=== PATIENT | male | born 1940 | race Caucasian/White ===

== ENCOUNTER → 2018-06-09 06:56 | Outpatient (CLI) | payer MEDICARE, OTHER, SELFPAY ==
[2018-06-09 08:32] LABS: Hemoglobin A1C% w Est Avg Glu 6.9 % (4.0-6.0)
[2018-06-09 08:41] LABS: Alanine Aminotransferase 30 IU/L (21-72); Albumin 4.2 g/dL (3.5-5.0); Albumin Globulin Ratio 1.9 (1.0-2.8); Alkaline Phosphatase 63 U/L (38-126); Aspartate Aminotransferase 19 IU/L (17-59); Bilirubin Total 0.7 mg/dL (0.2-1.3); Blood Urea Nitrogen 26 mg/dL (9-20); Calcium 9.4 mg/dL (8.4-10.2); Carbon Dioxide 32 mmol/L (22-32); Chloride 102 mmol/L (98-107); Estimated Glomerular Filt Rate 53.7 mL/min (>60); Globulin 2.2 g/dL (1.7-4.1); Glucose 152 mg/dL (80-110); HEMOLYSIS < 15 (0-50); Potassium 5.1 mmol/L (3.4-5.1); Sodium 143 mmol/L (137-145); Total Protein 6.4 g/dL (6.3-8.2)
== END ==
PROVIDERS: PCP Internal Medicine; Visit Provider Internal Medicine
DX: I10 Essential (primary) hypertension (principal); E78.2 Mixed hyperlipidemia; E11.9 Type 2 diabetes mellitus without complications
CPT/HCPCS: 36415; 80053; 83036

== ENCOUNTER → 2018-09-08 07:18 | Outpatient (CLI) | payer MEDICARE, OTHER, SELFPAY ==
[2018-09-08 08:17] LABS: Hemoglobin A1C% w Est Avg Glu 7.3 % (4.0-6.0)
[2018-09-08 08:48] LABS: BUN Creatinine Ratio 21.5 (6-22); Blood Urea Nitrogen 28 mg/dL (9-20); Calcium 9.4 mg/dL (8.4-10.2); Carbon Dioxide 30 mmol/L (22-32); Chloride 103 mmol/L (98-107); Estimated Glomerular Filt Rate 53.5 mL/min (>60); Glucose 182 mg/dL (80-110); HEMOLYSIS < 15 (0-50); Sodium 146 mmol/L (137-145)
== END ==
PROVIDERS: Family Provider Ophthalmology; PCP Internal Medicine; Visit Provider Internal Medicine
DX: E11.65 Type 2 diabetes mellitus with hyperglycemia (principal)
CPT/HCPCS: 36415; 80048; 83036

== ENCOUNTER → 2018-12-08 07:13 | Outpatient (CLI) | payer OTHER, SELFPAY ==
[2018-12-08 08:44] LABS: Hemoglobin A1C% w Est Avg Glu 7.3 % (4.0-6.0)
[2018-12-08 08:48] LABS: BUN Creatinine Ratio 16.9 (6-22); Blood Urea Nitrogen 22 mg/dL (9-20); Calcium 9.6 mg/dL (8.4-10.2); Carbon Dioxide 30 mmol/L (22-32); Chloride 102 mmol/L (98-107); Estimated Glomerular Filt Rate 53.5 mL/min (>60); Glucose 137 mg/dL (80-110); HEMOLYSIS 17 (0-50); Potassium 4.2 mmol/L (3.4-5.1); Sodium 142 mmol/L (137-145)
== END ==
PROVIDERS: Family Provider Ophthalmology; PCP Internal Medicine; Visit Provider Internal Medicine
DX: E11.9 Type 2 diabetes mellitus without complications (principal); I10 Essential (primary) hypertension; N18.3 Chronic kidney disease, stage 3 (moderate)
CPT/HCPCS: 36415; 80048; 83036

== ENCOUNTER → 2019-06-21 07:03 | Outpatient (CLI) | payer OTHER, SELFPAY ==
[2019-06-21 08:56] LABS: Hemoglobin A1C% w Est Avg Glu 6.6 % (4.0-6.0)
[2019-06-21 09:07] LABS: Alanine Aminotransferase 12 IU/L (21-72); Albumin 4.2 g/dL (3.5-5.0); Albumin Globulin Ratio 1.7 (1.0-2.8); Alkaline Phosphatase 59 U/L (38-126); Aspartate Aminotransferase 19 IU/L (17-59); BUN Creatinine Ratio 19.2 (6-22); Bilirubin Total 0.4 mg/dL (0.2-1.3); Blood Urea Nitrogen 23 mg/dL (9-20); Calcium 9.1 mg/dL (8.4-10.2); Carbon Dioxide 28 mmol/L (22-32); Chloride 105 mmol/L (98-107); Estimated Glomerular Filt Rate 58.7 mL/min (>60); Globulin 2.5 g/dL (1.7-4.1); Glucose 111 mg/dL (80-110); HEMOLYSIS 19 (0-50); Potassium 4.1 mmol/L (3.4-5.1); Sodium 141 mmol/L (137-145); Total Protein 6.7 g/dL (6.3-8.2)
== END ==
PROVIDERS: Family Provider Ophthalmology; PCP Internal Medicine; Visit Provider Internal Medicine
DX: E11.9 Type 2 diabetes mellitus without complications (principal); I12.9 Hypertensive chronic kidney disease with stage 1 through stage 4 chronic kidney disease, or unspecified chronic kidney disease; N18.3 Chronic kidney disease, stage 3 (moderate)
CPT/HCPCS: 36415; 80053; 83036

== ENCOUNTER → 2020-03-08 07:10 | Outpatient (CLI) | payer OTHER, SELFPAY ==
[2020-03-08 08:36] LABS: Hemoglobin A1C% w Est Avg Glu 7.3 % (4.0-6.0)
[2020-03-08 08:45] LABS: BUN Creatinine Ratio 14.7 (6-22); Blood Urea Nitrogen 20 mg/dL (9-20); Calcium 9.3 mg/dL (8.4-10.2); Carbon Dioxide 26 mmol/L (22-32); Chloride 107 mmol/L (98-107); Estimated Glomerular Filt Rate 50.7 mL/min (>60); Glucose 154 mg/dL (80-110); HEMOLYSIS < 15 (0-50); Potassium 4.5 mmol/L (3.4-5.1); Sodium 140 mmol/L (137-145)
== END ==
PROVIDERS: Family Provider Ophthalmology; PCP Internal Medicine; Referring Provider Ophthalmology; Visit Provider Internal Medicine
DX: E11.9 Type 2 diabetes mellitus without complications (principal); I10 Essential (primary) hypertension; N18.3 Chronic kidney disease, stage 3 (moderate)
CPT/HCPCS: 36415; 80048; 83036

== ENCOUNTER → 2020-08-30 07:46 | Outpatient (CLI) | payer OTHER, SELFPAY ==
[2020-08-30 08:36] LABS: Hemoglobin A1C% w Est Avg Glu 7.1 % (4.0-6.0)
[2020-08-30 08:52] LABS: Alanine Aminotransferase 11 IU/L (<50); Albumin 4.2 g/dL (3.5-5.0); Albumin Globulin Ratio 1.9 (1.0-2.8); Alkaline Phosphatase 68 U/L (38-126); Aspartate Aminotransferase 17 IU/L (17-59); Bilirubin Total 0.5 mg/dL (0.2-1.3); Blood Urea Nitrogen 27 mg/dL (9-20); Calcium 9.5 mg/dL (8.4-10.2); Carbon Dioxide 29 mmol/L (22-32); Chloride 105 mmol/L (98-107); Cholesterol 129 mg/dL (140-199); Estimated Glomerular Filt Rate 48.2 mL/min (>60); Globulin 2.2 g/dL (1.7-4.1); Glucose 163 mg/dL (80-110); HDL Cholesterol 27 mg/dL (40-60); HEMOLYSIS < 15 (0-50); LDL Cholesterol Calculated 69 mg/dL (<100); Potassium 4.6 mmol/L (3.4-5.1); Sodium 142 mmol/L (137-145); Total Protein 6.4 g/dL (6.3-8.2); Triglycerides 167 mg/dL (35-150)
== END ==
PROVIDERS: Family Provider Ophthalmology; PCP Internal Medicine; Referring Provider Internal Medicine; Visit Provider Internal Medicine
DX: E11.9 Type 2 diabetes mellitus without complications (principal); E78.2 Mixed hyperlipidemia; I10 Essential (primary) hypertension; N18.30 Chronic kidney disease, stage 3 unspecified
CPT/HCPCS: 36415; 80053; 80061; 83036

== ENCOUNTER → 2021-02-28 07:24 | Outpatient (CLI) | payer OTHER, SELFPAY ==
[2021-02-28 08:48] LABS: Hemoglobin A1C% w Est Avg Glu 7.5 % (4.0-6.0)
[2021-02-28 09:00] LABS: Alanine Aminotransferase 10 IU/L (<50); Albumin Globulin Ratio 1.9 (1.0-2.8); Alkaline Phosphatase 54 U/L (38-126); Aspartate Aminotransferase 21 IU/L (17-59); Bilirubin Total 0.5 mg/dL (0.2-1.3); Blood Urea Nitrogen 31 mg/dL (9-20); Calcium 9.5 mg/dL (8.4-10.2); Carbon Dioxide 25 mmol/L (22-32); Chloride 106 mmol/L (98-107); Cholesterol 125 mg/dL (140-199); Estimated Glomerular Filt Rate 48.5 mL/min (>60); Globulin 2.1 g/dL (1.7-4.1); Glucose 131 mg/dL (80-110); HDL Cholesterol 34 mg/dL (40-60); HEMOLYSIS < 15 (0-50); LDL Cholesterol Calculated 66 mg/dL (<100); Potassium 4.9 mmol/L (3.4-5.1); Sodium 141 mmol/L (137-145); Total Protein 6.1 g/dL (6.3-8.2); Triglycerides 125 mg/dL (35-150)
== END ==
PROVIDERS: Family Provider Ophthalmology; PCP Internal Medicine; Referring Provider Internal Medicine; Visit Provider Internal Medicine
DX: E11.9 Type 2 diabetes mellitus without complications (principal); E78.2 Mixed hyperlipidemia; I12.9 Hypertensive chronic kidney disease with stage 1 through stage 4 chronic kidney disease, or unspecified chronic kidney disease; N18.30 Chronic kidney disease, stage 3 unspecified
CPT/HCPCS: 36415; 80053; 80061; 83036

== ENCOUNTER → 2021-08-29 07:08 | Outpatient (CLI) | payer OTHER, SELFPAY ==
[2021-08-29 08:42] LABS: Hemoglobin A1C% w Est Avg Glu 7.5 % (4.0-6.0)
[2021-08-29 09:10] LABS: Alanine Aminotransferase 12 IU/L (<50); Albumin 4.2 g/dL (3.5-5.0); Alkaline Phosphatase 69 U/L (38-126); Aspartate Aminotransferase 19 IU/L (17-59); BUN Creatinine Ratio 20.8 (6-22); Bilirubin Total 0.3 mg/dL (0.2-1.3); Blood Urea Nitrogen 30 mg/dL (9-20); Calcium 9.3 mg/dL (8.4-10.2); Carbon Dioxide 27 mmol/L (22-32); Chloride 104 mmol/L (98-107); Cholesterol 150 mg/dL (140-199); Estimated Glomerular Filt Rate 47.3 mL/min (>60); Globulin 2.1 g/dL (1.7-4.1); Glucose 155 mg/dL (80-110); HDL Cholesterol 36 mg/dL (40-60); HEMOLYSIS < 15 (0-50); LDL Cholesterol Calculated 67 mg/dL (<100); Sodium 141 mmol/L (137-145); Total Protein 6.3 g/dL (6.3-8.2); Triglycerides 234 mg/dL (35-150)
[2021-08-29 09:11] LABS: Potassium 4.6 mmol/L (3.4-5.1)
== END ==
PROVIDERS: Family Provider Ophthalmology; PCP Internal Medicine; Referring Provider Internal Medicine; Visit Provider Internal Medicine
DX: E11.65 Type 2 diabetes mellitus with hyperglycemia (principal); E78.2 Mixed hyperlipidemia; I10 Essential (primary) hypertension; N18.30 Chronic kidney disease, stage 3 unspecified
CPT/HCPCS: 36415; 80053; 80061; 83036

== ENCOUNTER → 2021-09-04 09:37 | Outpatient (CLI) | payer OTHER, SELFPAY ==
[2021-09-04 10:18] LABS: Add Manual Diff / Slide Review NO; Basophils Absolute Auto 0 /uL (0-100); Basophils Percent Auto 0.7 % (0-2); Eosinophils Absolute Auto 100 /uL (0-450); Eosinophils Percent Auto 1.2 % (2-4); Hematocrit 46.8 % (41-53); Hemoglobin 15.4 g/dL (13.5-17.5); Lymphocytes Absolute Auto 1600 /uL (1100-4500); Lymphocytes Percent Auto 27.4 % (25-40); Mean Corpuscular HGB Conc 32.9 % (30-36); Mean Corpuscular Hemoglobin 29.8 PG (26-34); Mean Corpuscular Volume 90.7 fL (80-100); Monocytes Absolute Auto 600 /uL (0-900); Monocytes Percent Auto 9.9 % (3-14); Neutrophils Absolute Auto 3500 /uL (1500-7000); Neutrophils Percent Auto 60.8 % (50-75); Platelet Count 174 X10^3/uL (150-400); Red Blood Cell Count 5.16 X10^6/uL (4.5-5.9); Red Cell Distribution Width 13.2 % (11.6-14.8); White Blood Cell Count 5.8 X10^3/uL (4.5-11.0)
[2021-09-04 10:39] LABS: Erythrocyte Sedimentation Rate 1 MM/HR (0-15)
[2021-09-04 10:42] LABS: C-Reactive Protein Quant < 0.5 mg/dL (<1.0)
[2021-09-04 11:10] LABS: TSH w/ Reflex to FT4 1.04 uIU/mL (0.47-4.68)
[2021-09-08 17:36] LABS: Percent Free Testosterone 3.47 % (1.50-4.20); Testosterone Free 8.18 ng/dL (5.00-21.00); Testosterone Total 235.8 ng/dL (264.0-916.0)
== END ==
PROVIDERS: Family Provider Ophthalmology; PCP Internal Medicine; Referring Provider Internal Medicine; Visit Provider Internal Medicine
DX: E78.2 Mixed hyperlipidemia (principal); F52.21 Male erectile disorder; I10 Essential (primary) hypertension; N18.31 Chronic kidney disease, stage 3a; R06.00 Dyspnea, unspecified
CPT/HCPCS: 36415; 84402; 84403; 84443; 85025; 85651; 86140

== ENCOUNTER → 2022-03-11 07:20 | Outpatient (CLI) | payer OTHER, SELFPAY ==
[2022-03-11 08:31] LABS: Creatinine Urine Random 151.2 mg/dL
[2022-03-11 08:35] LABS: Microalbumi Creatinin Ratio Ur 3.9 ug/mg CR (<30); Microalbumin Urine Random 0.6 mg/dL (0-1.6)
[2022-03-11 09:00] LABS: Alanine Aminotransferase 12 IU/L (<50); Albumin 4.3 g/dL (3.5-5.0); Albumin Globulin Ratio 1.7 (1.0-2.8); Alkaline Phosphatase 57 U/L (38-126); Aspartate Aminotransferase 20 IU/L (17-59); BUN Creatinine Ratio 15.8 (6-22); Bilirubin Total 0.6 mg/dL (0.2-1.3); Blood Urea Nitrogen 24 mg/dL (9-20); Calcium 9.4 mg/dL (8.4-10.2); Carbon Dioxide 29 mmol/L (22-32); Chloride 107 mmol/L (98-107); Cholesterol 140 mg/dL (140-199); Estimated Glomerular Filt Rate 46 mL/min (>60); Globulin 2.6 g/dL (1.7-4.1); Glucose 184 mg/dL (80-110); HDL Cholesterol 36 mg/dL (40-60); HEMOLYSIS < 15 (0-50); LDL Cholesterol Calculated 68 mg/dL (<100); Potassium 4.8 mmol/L (3.4-5.1); Sodium 142 mmol/L (137-145); Total Protein 6.9 g/dL (6.3-8.2); Triglycerides 182 mg/dL (35-150)
== END ==
PROVIDERS: Family Provider Ophthalmology; PCP Internal Medicine; Referring Provider Internal Medicine; Visit Provider Internal Medicine
DX: E11.9 Type 2 diabetes mellitus without complications (principal); E78.2 Mixed hyperlipidemia; I10 Essential (primary) hypertension; N18.31 Chronic kidney disease, stage 3a
CPT/HCPCS: 36415; 80053; 80061; 82043; 82570; 83036

== ENCOUNTER → 2022-06-25 08:04 | Outpatient (CLI) | payer OTHER, SELFPAY ==
[2022-06-25 08:30] LABS: Hemoglobin A1C% w Est Avg Glu 10.2 % (4.0-6.0)
[2022-06-25 09:07] LABS: Alanine Aminotransferase 11 IU/L (<50); Albumin Globulin Ratio 1.8 (1.0-2.8); Alkaline Phosphatase 64 U/L (38-126); Aspartate Aminotransferase 16 IU/L (17-59); BUN Creatinine Ratio 14.3 (6-22); Bilirubin Total 0.5 mg/dL (0.2-1.3); Blood Urea Nitrogen 22 mg/dL (9-20); Carbon Dioxide 29 mmol/L (22-32); Chloride 105 mmol/L (98-107); Estimated Glomerular Filt Rate 45 mL/min (>60); Globulin 2.2 g/dL (1.7-4.1); Glucose 231 mg/dL (80-110); HEMOLYSIS < 15 (0-50); Potassium 4.7 mmol/L (3.4-5.1); Sodium 139 mmol/L (137-145); Total Protein 6.2 g/dL (6.3-8.2)
[2022-06-25 09:30] LABS: TSH w/ Reflex to FT4 2.15 uIU/mL (0.47-4.68)
[2022-06-25 09:49] LABS: Vitamin B12 < 159 pg/mL (239-931)
[2022-06-26 17:56] LABS: Arsenic 1 ug/L (0-9); Lead, Blood < 1 ug/dL (0-4)
[2022-07-24 13:56] LABS: Mercury, Blood 0
== END ==
PROVIDERS: Family Provider Ophthalmology; PCP Internal Medicine; Referring Provider Internal Medicine; Visit Provider Internal Medicine
DX: E11.65 Type 2 diabetes mellitus with hyperglycemia (principal); I10 Essential (primary) hypertension; R41.3 Other amnesia
CPT/HCPCS: 36415; 80053; 82175; 82607; 83036; 83655; 83825; 84443

== ENCOUNTER → 2022-09-19 08:28 | Outpatient (CLI) | payer OTHER, SELFPAY ==
[2022-09-19 09:55] LABS: Hemoglobin A1C% w Est Avg Glu 9.6 % (4.0-6.0)
[2022-09-19 10:35] LABS: BUN Creatinine Ratio 16.1 (6-22); Blood Urea Nitrogen 25 mg/dL (9-20); Calcium 8.9 mg/dL (8.4-10.2); Carbon Dioxide 27 mmol/L (22-32); Chloride 101 mmol/L (98-107); Estimated Glomerular Filt Rate 45 mL/min (>60); Glucose 216 mg/dL (80-110); HEMOLYSIS < 15 (0-50); Potassium 4.6 mmol/L (3.4-5.1); Sodium 137 mmol/L (137-145)
[2022-09-19 11:06] LABS: Vitamin B12 194 pg/mL (239-931)
== END ==
PROVIDERS: Family Provider Ophthalmology; PCP Internal Medicine; Referring Provider Internal Medicine; Visit Provider Internal Medicine
DX: E11.65 Type 2 diabetes mellitus with hyperglycemia (principal); E53.8 Deficiency of other specified B group vitamins
CPT/HCPCS: 36415; 80048; 82607; 83036

== ENCOUNTER → 2022-12-31 07:47 | Outpatient (CLI) | payer OTHER, SELFPAY ==
[2022-12-31 09:24] LABS: BUN Creatinine Ratio 18.5 (6-22); Blood Urea Nitrogen 29 mg/dL (9-20); Calcium 8.8 mg/dL (8.4-10.2); Carbon Dioxide 27 mmol/L (22-32); Chloride 104 mmol/L (98-107); Estimated Glomerular Filt Rate 44 mL/min (>60); Glucose 186 mg/dL (80-110); HEMOLYSIS < 15 (0-50); Potassium 4.2 mmol/L (3.4-5.1); Sodium 141 mmol/L (137-145)
[2022-12-31 10:12] LABS: Vitamin B12 226 pg/mL (239-931)
[2022-12-31 11:27] LABS: Hemoglobin A1C% w Est Avg Glu 8.9 % (4.0-6.0)
== END ==
PROVIDERS: Family Provider Ophthalmology; PCP Internal Medicine; Referring Provider Internal Medicine; Visit Provider Internal Medicine
DX: E11.9 Type 2 diabetes mellitus without complications (principal); E53.8 Deficiency of other specified B group vitamins
CPT/HCPCS: 36415; 80048; 82607; 83036

== ENCOUNTER → 2023-04-01 07:24 | Outpatient (CLI) | payer OTHER, SELFPAY ==
[2023-04-01 09:11] LABS: BUN Creatinine Ratio 16.6 (6-22); Blood Urea Nitrogen 29 mg/dL (9-20); Calcium 9.6 mg/dL (8.4-10.2); Carbon Dioxide 28 mmol/L (22-32); Chloride 102 mmol/L (98-107); Estimated Glomerular Filt Rate 39 mL/min (>60); Glucose 215 mg/dL (80-110); HEMOLYSIS < 15 (0-50); Potassium 5.1 mmol/L (3.4-5.1); Sodium 138 mmol/L (137-145)
[2023-04-02 06:01] LABS: Labcorp Hemoglobin (Hb) A1c 9.1 % (4.8-5.6)
== END ==
PROVIDERS: Family Provider Ophthalmology; PCP Internal Medicine; Referring Provider Internal Medicine; Visit Provider Internal Medicine
DX: I10 Essential (primary) hypertension (principal); E11.9 Type 2 diabetes mellitus without complications
CPT/HCPCS: 36415; 80048; 83036

== ENCOUNTER → 2023-06-27 06:58 | Outpatient (CLI) | payer OTHER, SELFPAY ==
[2023-06-27 09:01] LABS: Chloride 105 mmol/L (98-107); HEMOLYSIS < 15 (0-50); Potassium 4.4 mmol/L (3.4-5.1); Sodium 140 mmol/L (137-145)
[2023-06-27 09:21] LABS: Blood Urea Nitrogen 30 mg/dL (9-20); Calcium 9.3 mg/dL (8.4-10.2); Carbon Dioxide 26 mmol/L (22-32); Estimated Glomerular Filt Rate 38 mL/min (>60); Glucose 199 mg/dL (80-110)
[2023-06-28 04:12] LABS: Labcorp Hemoglobin (Hb) A1c 8.7 % (4.8-5.6)
== END ==
PROVIDERS: Family Provider Ophthalmology; PCP Internal Medicine; Referring Provider Internal Medicine; Visit Provider Internal Medicine
DX: E78.2 Mixed hyperlipidemia (principal); I10 Essential (primary) hypertension; N18.30 Chronic kidney disease, stage 3 unspecified; E11.9 Type 2 diabetes mellitus without complications
CPT/HCPCS: 36415; 80048; 83036